=== PATIENT | female | born 1995 | race African-American/Black ===

== ENCOUNTER 2024-04-09 15:54 | Emergency (ER) | payer MEDICAID ==
[~2024-04-09] VITALS: Ht 172.7 cm; Wt 77.0 kg
[2024-04-09 18:26] VITALS: BP 128/78; PULSE 92; RESP 16; TEMP 98.7; O2SAT 97
== END 2024-04-09 18:43 | disposition home or self-care (01) ==
LOC: ER 15:54
DX: R51.9 Headache, unspecified (principal); V89.2XXA Person injured in unspecified motor-vehicle accident, traffic, initial encounter; Y93.I9 Activity, other involving external motion; Y92.89 Other specified places as the place of occurrence of the external cause; Y99.8 Other external cause status